=== PATIENT | female | born 1995 | race Caucasian/White ===

== ENCOUNTER 2018-03-06 00:59 | Emergency (ER) | payer OTHER ==
[2018-03-06 01:11] VITALS: BP 113/67
--- NOTE | 2018-03-06 01:18 | EDPHY ---
H & P Stated Complaint: Poss broken ankle Time Seen by Provider: 03/06/18 01:11 HPI/ROS: Chief Complaint: Ankle pain HPI: 22-year-old woman twisted her ankle several hours ago when she misstepped while [place]. She did not fall. She did not hit her head. She does admit to drinking alcohol tonight. Is currently without other complaints. No prior injuries to that joint. No knee pain. No hip pain. No foot pain. ROS: 10 point Review of Systems is negative except as noted in the HPI. PMH: Denies Social History: No smoking, occasional alcohol Family History: non-contributory Physical Exam: General: Awake, alert, no acute distress HEENT: Atraumatic Neck: Nontender, full range without pain Extremities: Right hip, nontender, full range of motion without pain, knee, nontender, full range of motion without pain, Right ankle: She does smoke willing and tender lateral malleolus. No medial tenderness. Decreased range of motion secondary to pain. Right foot: Nontender, 2+ DP and PT pulses. Capillary refills less than 2 sec. Sensations intact in all dermatomes. Skin: No rash - Personal History Current Tetanus/Diphtheria Vaccine: Unsure Current Tetanus Diphtheria and Acellular Pertussis (TDAP): Unsure - Medical/Surgical History Hx Asthma: No Hx Chronic Respiratory Disease: No Hx Diabetes: No Hx Cardiac Disease: No Hx Renal Disease: No Hx Cirrhosis: No Hx Alcoholism: No Hx HIV/AIDS: No Hx Splenectomy or Spleen Trauma: No Other PMH: Denies - Social History Smoking Status: Never smoked Constitutional: Initial Vital Signs Temperature (C) 36.5 C 03/06/18 01:02 Heart Rate 103 H 03/06/18 01:02 Respiratory Rate 16 03/06/18 01:02 Blood Pressure 113/67 03/06/18 01:02 O2 Sat (%) 97 03/06/18 01:02 O2 Delivery Mode Room Air Allergies/Adverse Reactions: cinnamon Allergy (Verified 03/06/18 01:06) Home Medications: Medication Instructions Recorded NK [No Known Home Meds] 03/06/18 Medical Decision Making - Diagnostics Imaging Results: Right ankle x-ray: No obvious fracture bony abnormality per my interpretation. Imaging: I viewed and interpreted images myself ED Course/Re-evaluation: X-rays do not show an obvious fracture. She has been placed in a Velcro stirrup splint given crutches. She will be referred to Orthopedics for outpatient follow-up. Departure - Departure Disposition: Home, Routine, Self-Care Clinical Impression: Ankle sprain Condition: Good Instructions: Ankle Sprain (ED), Ankle Stirrup Splint (ED), R.I.C.E. Treatment (ED), Crutch Instructions (ED) Additional Instructions: You may take 600 mg of ibuprofen 3 times a day, alternating with acetaminophen, 1000 mg 3 times a day for pain. Keep the joint elevated and apply ice for 15 min of every hour while awake. Follow up with orthopedic surgeon in 3-4 days for further evaluation. Referrals: Foster Steel MD [Medical Doctor] - As per Instructions
== END 2018-03-06 01:44 | disposition home or self-care (01) ==
DX: S93.401A Sprain of unspecified ligament of right ankle, initial encounter (principal); X50.9XXA Other and unspecified overexertion or strenuous movements or postures, initial encounter; Y92.89 Other specified places as the place of occurrence of the external cause; Y99.8 Other external cause status; Y93.89 Activity, other specified